=== PATIENT | female | born 1960 | race Caucasian/White ===

== ENCOUNTER 2016-08-08 13:01 | Day surgery (SDC) | payer MEDICAID ==
[~2016-08-08 13:01] MED LIST: AMOXICILLIN500 M1 PO; COMPAZINE10 MG PO; DILAUDID2 M1 PO; NO HOME MEDICATION; OXYBUTYNIN CHLO10 M1 PO; TYLENOL EXTRA500 M1 PO; ULTRAM50 M1 PO; XANAX0.25 M1 PO
[2016-08-08 13:52] LABS: BASO % 0.3 % (0-2); EOS % 8.6 % (0-7); EOSINOPHIL ABSOLUTE COUNT 0.8 tho/cmm (0.0-0.7); HCT-HEMATOCRIT 27.5 % (34.0-49.0); HGB-HEMOGLOBIN 8.5 gm/dl (12.0-15.5); IMMATURE GRANULOCYTES ABSOLUTE 0.01 tho/cmm (0-0.03); IMMATURE GRANULOCYTES PERCENT 0.1 % (0-0.3); LYMPH % 11.9 % (20-45); LYMPH ABSOLUTE COUNT 1.1 tho/cmm (0.8-4.5); MCH (MEAN CORPUSCULAR HGB) 24.3 pg (28.0-32.0); MCHC MEAN CORPUSCULAR HGB CONC 30.9 % (32.0-36.0); MCV (MEAN CELL VOLUME) 78.6 fl (82.0-96.0); MEAN PLATELET VOLUME 9.1 cmc (9.4-12.4); MONO % 10.3 % (0-12); NEUTROPHIL ABSOLUTE COUNT 6.5 tho/cmm (1.6-8.0); NEUTROPHIL-AUTOMATED 6.5 tho/cmm (1.6-8.0); NEUTROPHILS % 68.8 % (40-80); PLATELET COUNT 310 tho/cmm (150-450); WHITE BLOOD COUNT 9.4 tho/cmm (4.0-10.0)
[2016-08-08 13:54] LABS: RED CELL DISTRIBUTION WIDTH 25.6 % (12.4-16.4)
[2016-08-08 13:59] LABS: ANION GAP 11 mmol/L (0-20); BLOOD UREA NITROGEN 9 mg/dl (6-24); CALCIUM 8.7 mg/dl (8.5-10.5); CARBON DIOXIDE-VENOUS 27 mmol/L (22-32); CHLORIDE 104 mmol/l (96-110); CREATININE 0.93 mg/dl (0.50-1.10); GLUCOSE 98 mg/dL (70-110); POTASSIUM 3.6 mmol/L (3.7-5.1); SODIUM 138 mmol/L (135-145); eGFR VALUE FOR BLACK 80 mL/Min
[2016-08-08 14:17] LABS: URINE BILIRUBIN NEGATIVE (NEG); URINE BLOOD LARGE (NEG); URINE GLUCOSE (UA) NEGATIVE (NEG); URINE KETONE NEGATIVE (NEG); URINE LEUKOCYTE ESTERASE POSITIVE (NEG); URINE NITRITE POSITIVE (NEG); URINE PH 6.5 (5.0-8.0); URINE PROTEIN LARGE (NEG); URINE SPECIFIC GRAVITY 1.015 (1.003-1.030)
[2016-08-08 14:19] LABS: URINE APPEARANCE CLOUDY; URINE COLOR STRAW
[2016-08-08 14:26] LABS: URINE BACTERIA 4+; URINE WBC FULL FIELD /[HPF] (0-5)
[2016-08-15] MEDS ORDERED: MACROBID 100 M100 M1 PO (13:12)
[2016-11-01] MEDS ORDERED: FEROSUL325 M1 PO (14:09)
[2016-11-01] MEDS ORDERED: DILAUDID4 M1 PO (14:10)
[2016-11-01] MEDS ORDERED: PYRIDIUM100 M2 PO (14:11)
[2016-11-01] MEDS ORDERED: XARELTO15 M1 (14:13)
[2016-11-01] MEDS ORDERED: MACROBID 100 M100 M1 PO (14:23)
[2016-11-01] MEDS ORDERED: MACRODANTIN100 M1 PO (14:30)
[2016-11-01] MEDS ORDERED: ACID CONTROL150 M2 PO (14:46)
== END 2016-08-08 16:00 ==
LOC: SHSB 13:01
PROVIDERS: Urology
DX: Z43.6 Encounter for attention to other artificial openings of urinary tract (principal); Z53.9 Procedure and treatment not carried out, unspecified reason; F17.210 Nicotine dependence, cigarettes, uncomplicated; Z98.890 Other specified postprocedural states; Z79.899 Other long term (current) drug therapy; Z88.8 Allergy status to other drugs, medicaments and biological substances; Z85.038 Personal history of other malignant neoplasm of large intestine
CPT/HCPCS: J0290; J1580

== ENCOUNTER 2016-08-19 09:05 | Day surgery (SDC) | payer MEDICAID ==
[~2016-08-19 09:05] MED LIST changes: +MACROBID 100 M100 M1 PO
[2016-08-19 09:34] LABS: URINE BILIRUBIN NEGATIVE (NEG); URINE BLOOD LARGE (NEG); URINE GLUCOSE (UA) NEGATIVE (NEG); URINE KETONE NEGATIVE (NEG); URINE LEUKOCYTE ESTERASE POSITIVE (NEG); URINE NITRITE NEGATIVE (NEG); URINE PH 6.5 (5.0-8.0); URINE PROTEIN LARGE (NEG)
[2016-08-19 09:36] LABS: URINE APPEARANCE CLOUDY; URINE COLOR YELLOW
[2016-08-19 09:42] LABS: URINE WBC 100-150 /[HPF] (0-5)
[2016-08-19 09:43] LABS: URINE BACTERIA 2+; URINE MUCUS 1+; URINE RBC 50-70 /[HPF] (0-5)
[2016-08-19 09:45] LABS: BASO % 0.2 % (0-2); EOS % 1.9 % (0-7); EOSINOPHIL ABSOLUTE COUNT 0.2 tho/cmm (0.0-0.7); HGB-HEMOGLOBIN 9.1 gm/dl (12.0-15.5); IMMATURE GRANULOCYTES ABSOLUTE 0.02 tho/cmm (0-0.03); IMMATURE GRANULOCYTES PERCENT 0.2 % (0-0.3); LYMPH ABSOLUTE COUNT 1.2 tho/cmm (0.8-4.5); MCH (MEAN CORPUSCULAR HGB) 24.6 pg (28.0-32.0); MCHC MEAN CORPUSCULAR HGB CONC 31.4 % (32.0-36.0); MCV (MEAN CELL VOLUME) 78.4 fl (82.0-96.0); MONO % 1.5 % (0-12); MONOCYTE ABSOLUTE COUNT 0.1 tho/cmm (0.0-1.2); NEUTROPHILS % 82.2 % (40-80); PLATELET COUNT 367 tho/cmm (150-450); WHITE BLOOD COUNT 8.5 tho/cmm (4.0-10.0)
[2016-08-19 09:56] LABS: ANION GAP 14 mmol/L (0-20); BLOOD UREA NITROGEN 17 mg/dl (6-24); CALCIUM 8.7 mg/dl (8.5-10.5); CARBON DIOXIDE-VENOUS 25 mmol/L (22-32); CHLORIDE 106 mmol/l (96-110); CREATININE 1.28 mg/dl (0.50-1.10); GLUCOSE 97 mg/dL (70-110); POTASSIUM 4.1 mmol/L (3.7-5.1); SODIUM 141 mmol/L (135-145); eGFR VALUE FOR BLACK 54 mL/Min
[2016-11-01] MEDS ORDERED: FEROSUL325 M1 PO (14:09)
[2016-11-01] MEDS ORDERED: DILAUDID4 M1 PO (14:10)
[2016-11-01] MEDS ORDERED: PYRIDIUM100 M2 PO (14:11)
[2016-11-01] MEDS ORDERED: XARELTO15 M1 (14:13)
[2016-11-01] MEDS ORDERED: MACROBID 100 M100 M1 PO (14:23)
[2016-11-01] MEDS ORDERED: MACRODANTIN100 M1 PO (14:30)
[2016-11-01] MEDS ORDERED: ACID CONTROL150 M2 PO (14:46)
== END 2016-08-19 14:40 ==
LOC: SRG 09:05 → SHSB 09:06 → ORW 11:10 → PACU 11:56 → SHSB 12:45
PROVIDERS: Urology
PROC: 0TP98DZ Removal of Intraluminal Device from Ureter, Via Natural or Artificial Opening Endoscopic (ICD-10-PCS; principal; 2016-08-19)
PROC: 0T788DZ Dilation of Bilateral Ureters with Intraluminal Device, Via Natural or Artificial Opening Endoscopic (ICD-10-PCS; 2016-08-19)
DX: Z46.6 Encounter for fitting and adjustment of urinary device (principal); C79.11 Secondary malignant neoplasm of bladder; N13.30 Unspecified hydronephrosis; R31.0 Gross hematuria; N39.0 Urinary tract infection, site not specified; F17.210 Nicotine dependence, cigarettes, uncomplicated; Z88.8 Allergy status to other drugs, medicaments and biological substances; Z85.038 Personal history of other malignant neoplasm of large intestine; Z98.890 Other specified postprocedural states
CPT/HCPCS: C1769; C2617; J0690